=== PATIENT | female | born 1965 | race Caucasian/White ===

== ENCOUNTER 2018-02-25 12:12 | Emergency (ER) | payer OTHER ==
[~2018-02-25] VITALS: Ht 165.1 cm; Wt 99.8 kg
[2018-02-25] MEDS ORDERED: COZAAR25 MG (13:08)
[2018-02-25] MEDS ORDERED: METFORMIN HCL500 MG (13:08)
[2018-02-25] MEDS ORDERED: GLUCOTROL XL5 MG (13:08)
[2018-02-25] MEDS ORDERED: NOVOLIN 70100 UNIT/1 (13:09)
[2018-02-25] MEDS ORDERED: METOPROLOL ER-1 EAC1 (13:09)
[2018-02-25] MEDS ORDERED: VISTARIL25 MG PO (16:19)
== END 2018-02-25 17:21 | disposition home or self-care (01) ==
LOC: ER 12:12
DX: R00.2 Palpitations (principal); F06.4 Anxiety disorder due to known physiological condition